=== PATIENT | male | born 1995 | race Hispanic/Latino ===

== ENCOUNTER 2018-04-02 03:30 | Emergency (ER) | payer BC ==
[2018-04-02] MEDS ORDERED: Famotidine 20mg/50ml Premix IVPB STA (03:50)
[2018-04-02] MEDS ORDERED: Sodium Chloride 0.9% 1,000 ML IV STA (03:50)
[2018-04-02] MEDS ORDERED: Iohexol 240 (50 ml) PO ONE (03:50)
--- NOTE | 2018-04-02 03:53 | ED PDOC ---
HPI: Abdomen <Fernando Santana - Last Filed: 04/02/18 05:57> Chief Complaint (Provider): abdominal pain History Per: Patient History/Exam Limitations: no limitations Onset/Duration Of Symptoms: Hrs (5), Waxing/Waning Current Symptoms Are (Timing): Still Present Location Of Pain/Discomfort: Diffuse Associated Symptoms: Nausea, Vomiting <Heather Rao - Last Filed: 04/02/18 05:59> Time Seen by Provider: 04/02/18 03:45 Chief Complaint (Nursing): Abdominal Pain Additional Complaint(s): 23 y/o male presents with diffuse abdominal pain x 5 hours. Associated nausea and multiple vomiting episodes. Patient states he is unable to keep anything down. Denies fever, chest pain, shortness of breath, palpitations, changes in bowel movements, urinary symptoms. (Heather Rao) Past Medical History <Fernando Santana - Last Filed: 04/02/18 05:57> Reviewed: Historical Data, Nursing Documentation, Vital Signs - Medical History PMH: No Chronic Diseases - Surgical History Surgical History: No Surg Hx - Family History Family History: States: No Known Family Hx - Living Arrangements Living Arrangements: With Family <Heather Rao - Last Filed: 04/02/18 05:59> Vital Signs: Last Vital Signs Temp 97.6 F 04/02/18 03:41 Pulse 69 04/02/18 03:41 Resp 14 04/02/18 03:41 BP 112/65 04/02/18 03:41 Pulse Ox 100 04/02/18 03:54 - Allergies Allergies/Adverse Reactions: Allergies Allergy/AdvReac Type Severity Reaction Status Date / Time No Known Allergies Allergy Verified 04/02/18 03:40 Review of Systems ROS Statement: Except As Marked, All Systems Reviewed And Found Negative Gastrointestinal: Positive for: Nausea, Vomiting, Abdominal Pain <Heather Rao - Last Filed: 04/02/18 05:59> Physical Exam - Reviewed Nursing Documentation Reviewed: Yes Vital Signs Reviewed: Yes - Physical Exam Appears: Positive for: Well, Non-toxic, No Acute Distress Head Exam: Positive for: ATRAUMATIC, NORMAL INSPECTION, NORMOCEPHALIC Skin: Positive for: Pallor Eye Exam: Positive for: Normal appearance ENT: Positive for: Normal ENT Inspection Cardiovascular/Chest: Positive for: Regular Rate, Rhythm Respiratory: Positive for: Normal Breath Sounds Gastrointestinal/Abdominal: Positive for: Bowel Sounds, Soft, Tenderness ( diffuse) Back: Positive for: Normal Inspection Extremity: Positive for: Normal ROM Neurologic/Psych: Positive for: Alert, Oriented <Heather Rao - Last Filed: 04/02/18 05:59> - Laboratory Results Result Diagrams: 04/02/18 04:10 04/02/18 04:10 <Fernando Santana - Last Filed: 04/02/18 05:57> - Laboratory Results Result Diagrams: 04/02/18 04:10 04/02/18 04:10 - ECG O2 Sat by Pulse Oximetry: 100 <Heather Rao - Last Filed: 04/02/18 05:59> - Progress ED Course And Treament: labs, urine, IV fluids, IV zofran, IV pepcid, CT abd/pelvis (Heather Rao) Medical Decision Making <Fernando Santana - Last Filed: 04/02/18 05:57> <Heather Rao - Last Filed: 04/02/18 05:59> Medical Decision Makin:40 Patient signed out to Dr. Jorge pending CT. (Fernando Santana) Disposition - Patient ED Disposition Is Patient to be Admitted: Transfer of Care - Disposition Disposition: Transfer of Care Disposition Time: 06:40 Patient Signed Over To: Charis Jorge Handoff Comments: pending CT <Fernando Santana - Last Filed: 04/02/18 05:57> - Disposition Disposition Time: 06:00 Patient Signed Over To: Fernando Santana Handoff Comments: pending CT <Heather Rao - Last Filed: 04/02/18 05:59> - Clinical Impression Clinical Impression: Abdominal discomfort - Disposition Referrals: Adin White MD [Primary Care Provider] - Condition: FAIR
[2018-04-02] MEDS ORDERED: Famotidine 20mg/50ml 20 MG/50 ML BAG IVPB ONE (03:58)
[2018-04-02 04:16] LABS: BASO % 0.1 % (0.0-2.0); EOS % 0.3 % (0.0-4.0); HEMOGLOBIN 15.8 g/dL (12.0-18.0); LYMPH # 1.9 K/uL (1.0-4.3); LYMPH % 16.5 % (20.0-40.0); MEAN CORPUSCULAR HEMOGLOBIN 31.4 pg (27.0-31.0); MEAN CORPUSCULAR HGB CONC 34.6 g/dL (33.0-37.0); MEAN PLATELET VOLUME 8.9 fl (7.2-11.7); MONO # 0.5 K/uL (0.0-0.8); MONO % 4.6 % (0.0-10.0); NEUT # 9.2 K/uL (1.8-7.0); NEUT % 78.5 % (50.0-75.0); NRBC % 0.1 % (0.0-0.0); RBC 5.03 Mil/uL (4.40-5.90); RED CELL DISTRIBUTION WIDTH 12.4 % (11.5-14.5); WHITE BLOOD COUNT 11.7 K/uL (4.8-10.8)
[2018-04-02 04:46] LABS: ALB/GLOB RATIO 1.3 (1.0-2.1); ALBUMIN 4.6 g/dL (3.5-5.0); ALT/SGPT 26 U/L (21-72); AST/SGOT 28 U/L (17-59); BLOOD UREA NITROGEN 14 mg/dl (9-20); CALCIUM 9.7 mg/dL (8.4-10.2); GFR AFRICAN-AMERICAN > 60; GFR NON-AFRICAN AMERICAN > 60; LIPASE 109 U/L (23-300)
[2018-04-02 05:28] LABS: URINE BILIRUBIN NEGATIVE (NEGATIVE); URINE BLOOD NEGATIVE (NEGATIVE); URINE CLARITY SLIGHTY-CLOUDY (Clear); URINE COLOR YELLOW (YELLOW); URINE GLUCOSE (UA) NEG (Normal); URINE LEUKOCYTE ESTERASE NEG Leu/uL (Negative); URINE PROTEIN 30 mg/dL (NEGATIVE)
[2018-04-02 07:24] VITALS: RESP 16; O2SAT 98
--- NOTE | 2018-04-02 07:26 | ED PDOC ---
- Laboratory Results Result Diagrams: 04/02/18 04:10 04/02/18 04:10 - ECG O2 Sat by Pulse Oximetry: 98 Medical Decision Making Medical Decision Makin:00 Patient endorsed to me from Dr. Santana. Pending CT scan. 08:49 CT Abd/pelvis FINDINGS: LOWER THORAX: The lung bases are clear. LIVER: Normal in size with homogeneous enhancement. There is diffuse fatty infiltration in the liver No gross lesion or ductal dilatation. GALLBLADDER AND BILE DUCTS: No calcified gallstones. PANCREAS: Normal in size with homogeneous enhancement. No gross lesion or ductal dilatation. SPLEEN: Borderline splenomegaly. ADRENALS: No discrete nodule. KIDNEYS AND URETERS: Normal in size with homogeneous enhancement. No hydronephrosis. No solid mass. VASCULATURE: No aortic aneurysm. BOWEL: The small bowel loops are normal in caliber. There is sigmoid diverticulosis and apparent mild mural thickening in the sigmoid colon with mild pericolonic inflammatory changes. No drainable fluid collection or abscess. APPENDIX: Normal appendix. PERITONEUM: There is small amount of free fluid in the pelvis. No free air. LYMPH NODES: No enlarged lymph nodes. BLADDER: Normal in appearance. REPRODUCTIVE: Unremarkable. BONES: No acute fracture. OTHER FINDINGS: None. IMPRESSION: Findings are most compatible with acute sigmoid diverticulitis. Small amount of free fluid in the pelvis. No micro perforation, drainable fluid collection or abscess. 10:30 Patient was given results of CT scan and antibiotics were ordered. Patient states he has to go home. 11:42 Patient tolerated PO and feels better with no pain. Patient will be given first dose of antibiotics and will be sent home with po medication. Advised to follow up with [facility] covers Dr Mcgee and with a GI specialist. Jason brandon aware of patient and discharge plan. Scribe Attestation: Documented by Raoul Ferris acting as a scribe for Charis Jorge MD. Provider Scribe Attestation: All medical record entries made by the Scribe were at my direction and personally dictated by me. I have reviewed the chart and agree that the record accurately reflects my personal performance of the history, physical exam, medical decision making, and the department course for this patient. I have also personally directed, reviewed, and agree with the discharge instructions and disposition. Disposition Counseled Patient/Family Regarding: Studies Performed, Diagnosis, Need For Followup - Clinical Impression Clinical Impression: Abdominal discomfort, Diverticulitis - POA Present On Arrival: None - Disposition Referrals: Adin White MD [Primary Care Provider] - Diaz Adam MD, PhD [Staff Provider] - Disposition: Routine/Home Disposition Time: 12:00 Condition: IMPROVED Additional Instructions: follow up with your primary doctor Dr Akins also with GI doctor Dr Joy return to the ED with any worsening or concerning symptoms Prescriptions: Ciprofloxacin HCl [Cipro] 500 mg PO BID #20 tab Metronidazole [Flagyl] 500 mg PO TID #30 tablet Ondansetron [Zofran] 4 mg PO Q6H PRN #10 tab PRN Reason: Nausea/Vomiting Instructions: Diverticulitis (DC) Forms: [employer] (Mongolian)
[2018-04-02] MEDS ORDERED: Iohexol 300 100 ML IJ ONE (07:47)
[2018-04-02] MEDS ORDERED: Sodium Chloride 0.9% 50 ML IV ONE (07:47)
--- NOTE | 2018-04-02 08:51 | CT ---
PROCEDURE: CT Abdomen and Pelvis with contrast HISTORY: Abdominal pain and vomiting COMPARISON: None. TECHNIQUE: CT scan of the abdomen and pelvis was performed after administration of intravenous contrast. Oral contrast was administered. Coronal and sagittal reformatted images were obtained. Contrast dose: 95 mL Omnipaque 300 Radiation dose: Total exam DLP = 195.42 mGy-cm. This CT exam was performed using one or more of the following dose reduction techniques: Automated exposure control, adjustment of the mA and/or kV according to patient size, and/or use of iterative reconstruction technique. FINDINGS: LOWER THORAX: The lung bases are clear. LIVER: Normal in size with homogeneous enhancement. There is diffuse fatty infiltration in the liver No gross lesion or ductal dilatation. GALLBLADDER AND BILE DUCTS: No calcified gallstones. PANCREAS: Normal in size with homogeneous enhancement. No gross lesion or ductal dilatation. SPLEEN: Borderline splenomegaly. ADRENALS: No discrete nodule. KIDNEYS AND URETERS: Normal in size with homogeneous enhancement. No hydronephrosis. No solid mass. VASCULATURE: No aortic aneurysm. BOWEL: The small bowel loops are normal in caliber. There is sigmoid diverticulosis and apparent mild mural thickening in the sigmoid colon with mild pericolonic inflammatory changes. No drainable fluid collection or abscess. APPENDIX: Normal appendix. PERITONEUM: There is small amount of free fluid in the pelvis. No free air. LYMPH NODES: No enlarged lymph nodes. BLADDER: Normal in appearance. REPRODUCTIVE: Unremarkable. BONES: No acute fracture. OTHER FINDINGS: None. IMPRESSION: Findings are most compatible with acute sigmoid diverticulitis. Small amount of free fluid in the pelvis. No micro perforation, drainable fluid collection or abscess.
[2018-04-02] MEDS ORDERED: Ciprofloxacin 400mg/200ml D5W 400 MG/200 ML BAG IVPB STA (10:41)
[2018-04-02] MEDS ORDERED: Ciprofloxacin 400mg/200ml D5W 400 MG/200 ML BAG IVPB ONE (10:45)
[2018-04-02] MEDS ORDERED: metroNIDAZOLE 500mg/100ml NS 100 ML IVPB SCH (10:45)
[2018-04-02] MEDS ORDERED: metroNIDAZOLE 500mg/100ml NS 100 ML IVPB ONE (11:42)
[2018-04-02 13:29] VITALS: BP 112/74; PULSE 70; TEMP 97.1
== END 2018-04-02 13:32 | disposition home or self-care (01) ==
LOC: H.ER 03:30
DX: K57.92 Diverticulitis of intestine, part unspecified, without perforation or abscess without bleeding (principal); R10.9 Unspecified abdominal pain
CPT/HCPCS: 74177; 80053; 81003; 83690; 85025; 87040; 96361; 96365; 96375; 96376; 99284; J0744; J2405; J7030; Q9966; Q9967

== ENCOUNTER 2018-04-07 01:07 | Emergency (ER) | payer BC ==
[2018-04-07] MEDS ORDERED: Sodium Chloride 0.9% 1,000 ML IV STA (01:37)
[2018-04-07 01:55] LABS: BASO % 0.2 % (0.0-2.0); EOS # 0.1 K/uL (0.0-0.7); EOS % 1.1 % (0.0-4.0); LYMPH % 22.6 % (20.0-40.0); MEAN CELL VOLUME 92.2 fl (80.0-94.0); MEAN CORPUSCULAR HEMOGLOBIN 31.7 pg (27.0-31.0); MEAN CORPUSCULAR HGB CONC 34.4 g/dL (33.0-37.0); MEAN PLATELET VOLUME 8.9 fl (7.2-11.7); MONO # 0.7 K/uL (0.0-0.8); MONO % 7.9 % (0.0-10.0); NEUT # 6.1 K/uL (1.8-7.0); NEUT % 68.2 % (50.0-75.0); NRBC % 0.2 % (0.0-0.0); RBC 5.03 Mil/uL (4.40-5.90); RED CELL DISTRIBUTION WIDTH 12.6 % (11.5-14.5)
--- NOTE | 2018-04-07 01:56 | ED PDOC ---
HPI: Abdomen Time Seen by Provider: 04/07/18 01:22 Chief Complaint (Nursing): Abdominal Pain History Per: Patient History/Exam Limitations: no limitations Onset/Duration Of Symptoms: Hrs Current Symptoms Are (Timing): Better Location Of Pain/Discomfort: Diffuse Associated Symptoms: Nausea, Vomiting Additional Complaint(s): No PMHx presenting with nausea and vomiting, patient was seen 3 days ago and diagnosed with acute sigmoid diverticulitis, has been taking cipro and flagyl, states that he ate sushi yesterday night and since has had 15 episodes of non bloody non biliuos vomiting associated with diarrhea, but has not had a bowel movement since yesterday. Denies fevers, chills. States abdominal pain has resolved, but occasionally has "spurts" of abdominal pain bilaterally. No abdominal surgeries in the past. States he took zofran po which helped a little but nausea continued. Past Medical History Reviewed: Historical Data, Nursing Documentation, Vital Signs Vital Signs: Last Vital Signs Temp 97.9 F 04/07/18 01:17 Pulse 85 04/07/18 01:17 Resp 16 04/07/18 01:17 BP 109/74 04/07/18 01:17 Pulse Ox 97 04/07/18 01:57 - Medical History PMH: No Chronic Diseases - Surgical History Surgical History: No Surg Hx - Family History Family History: States: Unknown Family Hx - Home Medications Home Medications: Ambulatory Orders Medication Instructions Recorded Ciprofloxacin HCl [Cipro] 500 mg PO BID #20 tab 04/02/18 Metronidazole [Flagyl] 500 mg PO TID #30 tablet 04/02/18 Ondansetron [Zofran] 4 mg PO Q6H PRN #10 tab 04/02/18 - Allergies Allergies/Adverse Reactions: Allergies Allergy/AdvReac Type Severity Reaction Status Date / Time No Known Allergies Allergy Verified 04/07/18 01:17 Review of Systems ROS Statement: Except As Marked, All Systems Reviewed And Found Negative Gastrointestinal: Positive for: Nausea, Vomiting Physical Exam - Reviewed Nursing Documentation Reviewed: Yes Vital Signs Reviewed: Yes - Physical Exam Appears: Positive for: Well, Non-toxic, No Acute Distress, Uncomfortable Head Exam: Positive for: ATRAUMATIC, NORMAL INSPECTION, NORMOCEPHALIC Skin: Positive for: Normal Color, Warm, DRY Eye Exam: Positive for: EOMI, Normal appearance, PERRL ENT: Positive for: Normal ENT Inspection Neck: Positive for: Normal, Painless ROM Cardiovascular/Chest: Positive for: Regular Rate, Rhythm Respiratory: Positive for: CNT, Normal Breath Sounds Gastrointestinal/Abdominal: Positive for: Normal Exam, Soft Back: Positive for: Normal Inspection Extremity: Positive for: Normal ROM Neurologic/Psych: Positive for: Alert, Oriented - Laboratory Results Result Diagrams: 04/07/18 01:49 04/07/18 01:49 - ECG O2 Sat by Pulse Oximetry: 97 Pulse Ox Interpretation: Normal Medical Decision Making Medical Decision Makin A/P: Recently diagnosed diverticulitis presenting with nausea and vomiting after sushi consumption -likely related to improper diet while having divericulitis -will check labs, give fluids, zofran, and re-eval 0700 -Patient feeling much better, no pain, no nausea -PO challenged, no vomiting -Advised to continue ABx and zofran PRN -Adivsed to f/u w/ PMD in 1 -2 days Disposition - Clinical Impression Clinical Impression: Vomiting - Patient ED Disposition Is Patient to be Admitted: No - Disposition Referrals: Christal Allen [Outside] Disposition: Routine/Home Disposition Time: 07:01 Condition: IMPROVED Instructions: Nausea and Vomiting, Adult (DC) Forms: [employer] ([employer])
[2018-04-07 02:05] LABS: CALCIUM 9.4 mg/dL (8.4-10.2); GFR AFRICAN-AMERICAN > 60; GFR NON-AFRICAN AMERICAN > 60
[2018-04-07 02:07] LABS: BLOOD UREA NITROGEN 13 mg/dl (9-20)
[2018-04-07] MEDS ORDERED: Promethazine 25 MG in Sodium Chloride 0.9% 50 ML IVPB ONE (05:12)
[2018-04-07 07:27] VITALS: RESP 18
[2018-04-07 08:16] VITALS: BP 100/70; PULSE 72; TEMP 98; O2SAT 98
== END 2018-04-07 08:15 | disposition home or self-care (01) ==
LOC: H.ER 01:07
DX: R11.10 Vomiting, unspecified (principal)
CPT/HCPCS: 80048; 83605; 85025; 96361; 96365; 96375; 99285; J1885; J2405; J2550; J2765; J7030